=== PATIENT | male | born 1975 ===

== ENCOUNTER 2016-05-11 13:02 | Emergency (ER) | payer SELFPAY ==
[2016-05-11 13:18] VITALS: BP 164/99
[2016-05-11] MEDS ORDERED: Silver Sulfadiazine 1%* 20 GM ONE (13:42)
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
[2016-05-12] MEDS ORDERED: Silver Sulfadiazine 1%* 20 GM TOPICAL SCH (09:00)
== END 2016-05-11 14:04 | disposition home or self-care (01) ==
LOC: UCEAST 13:02
DX: T23.271A Burn of second degree of right wrist, initial encounter (principal); T31.0 Burns involving less than 10% of body surface; X19.XXXA Contact with other heat and hot substances, initial encounter; Y93.89 Activity, other specified; Y92.89 Other specified places as the place of occurrence of the external cause; Y99.0 Civilian activity done for income or pay; R03.0 Elevated blood-pressure reading, without diagnosis of hypertension; Z87.891 Personal history of nicotine dependence
CPT/HCPCS: 99202; A9270-GY; G0463

== ENCOUNTER 2016-05-12 07:13 | Emergency (ER) | payer SELFPAY ==
[2016-05-12 07:37] VITALS: BP 154/84
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
== END 2016-05-12 08:30 | disposition home or self-care (01) ==
LOC: UCEAST 07:13
DX: T23.271D Burn of second degree of right wrist, subsequent encounter (principal); T31.0 Burns involving less than 10% of body surface; X19.XXXD Contact with other heat and hot substances, subsequent encounter; R03.0 Elevated blood-pressure reading, without diagnosis of hypertension; Z87.891 Personal history of nicotine dependence
CPT/HCPCS: 99211; G0463